=== PATIENT | female | born 1975 | race Caucasian/White ===

== ENCOUNTER 2017-06-06 09:38 | Emergency (ER) | payer MEDICAID ==
[~2017-06-06] VITALS: Ht 162.6 cm; Wt 81.0 kg
[2017-06-06] MEDS ORDERED: ONDANSETRON HCL 4MG/2ML VIAL IV ONE (10:00)
[2017-06-06] MEDS ORDERED: TETANUS, DIPHTHERIA, PERTUSSIS VAC/PF 0.5ML (>7YR OLD) IM ONE (10:00)
[2017-06-06] MEDS ORDERED: AMPICILLIN SOD/SULBACTAM NA 1.5 G in SODIUM CHLORIDE 0.9% 50 ML IV SCH (10:00)
[2017-06-06] MEDS ORDERED: MORPHINE SULFATE 4 MG/ML CPJ (NOT FOR IM USE) IV ONE ×2 (10:00→10:45)
[2017-06-06 12:40] VITALS: BP 129/73
== END 2017-06-06 18:28 | disposition short-term general hospital (02) ==
LOC: ER 09:38 → EDBD 09:38 → ER 18:28
DX: S52.591B Other fractures of lower end of right radius, initial encounter for open fracture type I or II (principal); S51.852A Open bite of left forearm, initial encounter; W54.0XXA Bitten by dog, initial encounter; Y93.89 Activity, other specified; Y92.89 Other specified places as the place of occurrence of the external cause; Z23 Encounter for immunization
CPT/HCPCS: 73090; 90471; 90715; 93005; 96365; 96375; 96376; 99284; J0295; J2270; J2405; Z7610

== ENCOUNTER 2018-03-18 20:31 | Emergency (ER) | payer SELFPAY ==
[~2018-03-18] VITALS: Ht 162.6 cm; Wt 76.4 kg
[2018-03-18] MEDS ORDERED: ONDANSETRON HCL 4MG/2ML VIAL IV STA (21:29)
[2018-03-18] MEDS ORDERED: MORPHINE SULFATE 4 MG/ML CPJ (NOT FOR IM USE) IV STA (21:29)
[2018-03-18] MEDS ORDERED: LORAZEPAM 2MG/ML CPJ IV ONE (21:30)
[2018-03-18] MEDS ORDERED: MORPHINE SULFATE 2 MG/ML CPJ (NOT FOR IM USE) IV ONE ×2 (22:30→23:30)
[2018-03-18] MEDS ORDERED: BACITRACIN ZINC OINT UDPKT TOP ONE (23:15)
[2018-03-18] MEDS ORDERED: LIDOCAINE HCL/PF 1% 10 MG/ML 30ML VIAL INFIL ONE (23:15)
[2018-03-18] MEDS ORDERED: LIDOCAINE HCL/PF 1% 10 MG/ML 5ML VIAL IJ SCH (23:22)
[2018-03-19] MEDS ORDERED: LIDOCAINE HCL/PF 1% 10 MG/ML 30ML VIAL INFIL ONE
[2018-03-19] MEDS ORDERED: LIDOCAINE HCL/PF 1% 10 MG/ML 5ML VIAL IJ NR (00:30)
[2018-03-19] MEDS ORDERED: LORAZEPAM 2MG/ML CPJ IV ONE (01:00)
[2018-03-19] MEDS ORDERED: MORPHINE SULFATE 2 MG/ML CPJ (NOT FOR IM USE) IV ONE (01:00)
[2018-03-19 02:00] VITALS: BP 132/66
== END 2018-03-19 02:25 | disposition home or self-care (01) ==
LOC: ER 20:31
DX: S51.852A Open bite of left forearm, initial encounter (principal); W54.0XXA Bitten by dog, initial encounter; Y93.9 Activity, unspecified; Y92.9 Unspecified place or not applicable
CPT/HCPCS: 73090; 96374; 96375; 96376; 99284; J2060; J2270; J2405; J3490; Z7610